=== PATIENT | male | born 1980 | race Caucasian/White ===

== ENCOUNTER 2017-01-23 05:08 | Day surgery (SDC) | payer OTHER ==
[~2017-01-23] VITALS: Ht 188 cm; Wt 77.7 kg
[~2017-01-23 05:08] MED LIST: ATIVAN1 MG PO; BUPROPION HCL150 M1 PO; CLARITIN 10 MG10 MG PO; CYMBALTA20 MG PO; FLUTICASONE PRO16 GM NASAL; MELATONIN10 M1 PO; OMEPRAZOLE20 M1 PO; ZEBETA10 MG PO
[2017-01-23 07:48] LABS: HEMATOCRIT 39.7 % (42.0-54.0); HEMOGLOBIN 13.8 g/dL (13.5-17.5); MCH 31.5 pg (26.0-34.0); MCHC 34.8 g/dL (31.0-37.0); MCV 90.6 fL (80.0-100.0); MEAN PLATELET VOLUME 9.8 fL (7.4-10.4); RBC 4.38 10x6/uL (4.20-6.10); RDW 12.1 % (11.5-14.5); WBC 4.7 10x3/uL (4.8-10.8)
[2017-01-23 08:02] VITALS: BP 122/79; BMI 22.0
[2017-01-23] MEDS ORDERED: HYDROCODON-ACE1 EAC7 PO (12:39)
[2017-01-23] MEDS ORDERED: FLOMAX0.4 MG PO (12:39)
--- NOTE | 2017-01-23 13:46 | NUR ---
PT CARED FOR IN PACU FROM 1246 [address] 1345 PER RHONDA. REPORTED OFF TO GISELLA HARPER
--- NOTE | 2017-01-23 14:00 | NUR ---
SITTING AT BEDSIDE WITH URINAL. BP 76/58 HR 113 PALE IN COLOR. ENCOURAGED TO LAY DOWN IN BED. NS OPEN TO GRAVITY TO RIGHT FA. STRETCHER PLACED IN [place]. NOTIFIED.
--- NOTE | 2017-01-23 14:20 | NUR ---
AT BEDSIDE. BP 100/58 HR 106. NO NEW ORDERS NOTED AT THIS TIME. WILL CONTINUE TO MONITOR.
--- NOTE | 2017-01-23 15:45 | NUR ---
BP TRENDING DOWN, SPOKE WITH MD. WILL OBTAIN STAT CBC AND CONTINUE TO MONITOR.
--- NOTE | 2017-01-23 15:53 | NUR ---
SPOKE WITH DR GUDINO. NEW ORDERS NOTED. WILL CONTINUE TO MONITOR.
--- NOTE | 2017-01-23 16:00 | NUR ---
REQUEST TO SIT AT BEDSIDE. ASSISTED TO BEDSIDE. BP 69/39 HR 120. ASSISTED TO SUPINE POSITION IN BED. MD AT BEDSIDE
[2017-01-23 16:24] LABS: BASOPHILS 0.1 % (0-2); EOSINOPHILS 0.1 % (0-7); IMMATURE GRANULOCYTES 0.2 % (0-5); MCH 31.6 pg (26.0-34.0); MCHC 34.7 g/dL (31.0-37.0); MCV 91.1 fL (80.0-100.0); MEAN PLATELET VOLUME 9.8 fL (7.4-10.4); MONOCYTES 1.3 % (2-11); NEUTROPHILS 92.3 % (40-80); PLATELET COUNT 146 10x3/uL (130-400); RDW 12.1 % (11.5-14.5)
[2017-01-23 16:25] LABS: HEMATOCRIT 29.7 % (42.0-54.0); HEMOGLOBIN 10.3 g/dL (13.5-17.5); RBC 3.26 10x6/uL (4.20-6.10); WBC 12.7 10x3/uL (4.8-10.8)
--- NOTE | 2017-01-23 16:35 | NUR ---
30MIN POST EPHEDRINE, BP 81/39. SPOKE WITH DR VALDEZ. NEW ORDERS NOTED. SEE ORDERS FOR FURTHER DETAILS.
--- NOTE | 2017-01-23 18:00 | NUR ---
REPORT CALLED TO TORRI RAYMOND RN. REFUSED TO TAKE PT AT THIS TIME STATES "NOT STABLE ENOUGH FOR FLOOR" REQUEST [facility] TRANSFUSION INITAITED PRIOR TO TRANSFER. BP 73/39, HR 110. NO ACUTE DISTRESS NOTED. RR EVEN AND UNLABORED. INCISIONS TO ABDOMEN CDI. SIGNIFICANT OTHER AT BEDSIDE. WILL CONTINUE TO MONITOR. TORRI RAYMOND RN REQUEST TRANSFER TO BE COMPLETED "AT 730".
--- NOTE | 2017-01-23 18:45 | NUR ---
SEE BLOOD FLOWSHEET IN PAPER CHART FOR FURTHER VITAL SIGNS
[2017-01-23 19:25] VITALS: BP 90/59
--- NOTE | 2017-01-23 19:25 | NUR ---
SPOKE WITH TORRI RAYMOND RN FOR TRANSFER. STATES "MUCH BETTER BLOOD PRESSURE". BP 89/43 PRIOR TO TRANSFER. [facility] INTITATED AT 1645. WILL TRANSFER TO ROOM 2232
--- NOTE | 2017-01-23 19:35 | NUR ---
TRANSFERRED TO ROOM 2232 VIA STRETCHER WITH SIGNIFICANT OTHER. AFVSS. BED IN LOW POSITION, CALL LIGHT IN REACH.
[2017-01-23 20:35] LABS: CALC OSMOLALITY 284 mosm/kg (275-300); CALCIUM 7.4 mg/dL (8.5-10.1); CARBON DIOXIDE 29.5 mmol/L (21.0-32.0); CHLORIDE - SERUM 106 mmol/L (98-107); GLUCOSE 152 mg/dL (74-106); POTASSIUM - SERUM 3.4 mmol/L (3.5-5.1); SODIUM 141 mmol/L (136-145); UREA NITROGEN 16 mg/dL (7-18); eGFR NON AFRICAN AMERICAN 89 mL/min (90-120)
[2017-01-24 02:19] LABS: BASOPHILS 0 % (0-2); EOSINOPHILS 0 % (0-7); HEMOGLOBIN 10.3 g/dL (13.5-17.5); IMMATURE GRANULOCYTES 0.2 % (0-5); MCH 31.3 pg (26.0-34.0); MCHC 35.5 g/dL (31.0-37.0); MEAN PLATELET VOLUME 9.3 fL (7.4-10.4); MONOCYTES 5.3 % (2-11); NEUTROPHILS 88.5 % (40-80); PLATELET COUNT 131 10x3/uL (130-400); RBC 3.29 10x6/uL (4.20-6.10); RDW 12.4 % (11.5-14.5)
[2017-01-24 02:22] LABS: MCV 88.1 fL (80.0-100.0)
[2017-01-24 04:43] VITALS: BP 80/48; Ht 188 cm; Wt 77.7 kg
--- NOTE | 2017-01-24 07:50 | NUR ---
PT A&O, PAIN MEDS GIVEN, DENIES OTHER NEEDS, BED LOWEST POSITION, CALL LIGHT IN REACH, WILL CONTINUE TO MONITOR
--- NOTE | 2017-01-24 07:54 | NUR ---
9810)called dr samanta oconnell post 2hour PR[facility] result and blood pressure still 88/48. no new orders rec'd.voiding without difficulty.color looking much better eric colored cheeks. heart rate 88-93. will continue to monitor for any chges and follow current plan of care
--- NOTE | 2017-01-24 08:30 | NUR ---
PATIENT ALERT IN HIGH [place] POSITION WITH FAMILY AT BEDSIDE. NO SIGNS OF DISTRESS NOTED. SIDE RAILS UP X2. BED IN LOW POSITION. CALL LIGHT IN REACH.
[2017-01-24 08:57] LABS: BASOPHILS 0 % (0-2); EOSINOPHILS 0 % (0-7); HEMATOCRIT 30.1 % (42.0-54.0); HEMOGLOBIN 10.6 g/dL (13.5-17.5); IMMATURE GRANULOCYTES 0.2 % (0-5); MCH 31.4 pg (26.0-34.0); MCHC 35.2 g/dL (31.0-37.0); MCV 89.1 fL (80.0-100.0); MEAN PLATELET VOLUME 9.9 fL (7.4-10.4); MONOCYTES 5.8 % (2-11); PLATELET COUNT 148 10x3/uL (130-400); RBC 3.38 10x6/uL (4.20-6.10); RDW 12.6 % (11.5-14.5); WBC 12.4 10x3/uL (4.8-10.8)
[2017-01-24 09:49] VITALS: BP 127/69
[2017-01-24] MEDS ORDERED: FUROSEMIDE20 MG PO (12:16)
[2017-01-24 14:21] VITALS: BP 119/62
--- NOTE | 2017-01-24 15:11 | NUR ---
DISCHARGE PAPERS AND INSSTRUCTIONS GIVEN, QUESTIONS ANSERED, IV REMOVED TIP INTACT, DISCHARGED PER WC WITH BELONGINGS
== END 2017-01-24 15:25 | disposition home or self-care (01) ==
LOC: D.OPS 05:08 → D.MS 05:08 → D.OPS 08:15 → D.PAN 08:15 → D.MS 19:24 → D.OPS 01-24 15:25
PROVIDERS: Anesthesiology; Surgery
DX: K40.20 Bilateral inguinal hernia, without obstruction or gangrene, not specified as recurrent (principal); F17.200 Nicotine dependence, unspecified, uncomplicated; J45.909 Unspecified asthma, uncomplicated; I10 Essential (primary) hypertension; K21.9 Gastro-esophageal reflux disease without esophagitis; Z01.812 Encounter for preprocedural laboratory examination